=== PATIENT | female | born 1980 | race Caucasian/White ===

== ENCOUNTER 2023-12-18 12:49 | Emergency (ER) | payer MEDICAID ==
[~2023-12-18] VITALS: Ht 157.5 cm; Wt 97.6 kg
[2023-12-18 12:56] VITALS: O2SAT 100
[2023-12-18] MEDS ORDERED: IBUP-2028 MT (15:51)
[2023-12-18] MEDS ORDERED: CEPH500C2 MT (16:00)
[2023-12-18 16:03] VITALS: BP 154/58; PULSE 75; RESP 16; TEMP 98.4
== END 2023-12-18 16:13 | disposition home or self-care (01) ==
LOC: ER 12:49
DX: S09.90XA Unspecified injury of head, initial encounter (principal); I10 Essential (primary) hypertension; W18.39XA Other fall on same level, initial encounter; Y93.89 Activity, other specified; Y92.89 Other specified places as the place of occurrence of the external cause; Y99.8 Other external cause status
CPT/HCPCS: 71100; 81025; 99284

== ENCOUNTER 2025-01-19 17:57 | Emergency (ER) | payer MEDICAID, OTHER ==
[~2025-01-19] VITALS: Ht 154.9 cm; Wt 86.0 kg
[~2025-01-19 17:57] MED LIST: CEPH500C2 MT; IBUP-2028 MT
[2025-01-19 18:11] VITALS: TEMP 37.3; O2SAT 98
[2025-01-19 19:05] VITALS: PULSE 90; RESP 22
[2025-01-19 19:08] LABS: BASOPHILS % 0.9 % (0.0-2.0); EOSINOPHILS % 3.6 % (0.0-5.0); HEMATOCRIT. 36.2 % (36.0-48.0); HEMOGLOBIN. 11.9 g/dL (12.0-16.0); MEAN CORPUSCULAR HEMOGLOBIN 30.3 pg (28.0-32.0); MEAN CORPUSCULAR VOLUME 91.6 fL (81.0-99.0); MEAN PLATELET VOLUME 7.6 fl (7.4-10.4); MONOCYTES % 13.8 % (2.0-8.0); NEUTROPHILS % 49.7 % (40.0-76.0); PLATELET 353 x1000/uL (130-400); RED BLOOD CELL COUNT 3.95 mill/uL (4.2-5.4); RED CELL DISTRIBUTION WIDTH 15.4 % (11.6-14.6); WHITE BLOOD COUNT 5.9 x1000/uL (4.5-11.0)
[2025-01-19] MEDS: IPRATROPIUM BROMIDE (0.02%) 0.5MG/2.5ML NEB HHN STA (19:13)
[2025-01-19] MEDS: ALBUTEROL (0.083%) 2.5MG/3ML NEB HHN STA (19:13)
[2025-01-19 19:17] LABS: CHLORIDE 106 mEq/L (98-107); POTASSIUM 3.2 mEq/L (3.5-5.1); SODIUM 138 mEq/L (136-145)
[2025-01-19 19:18] LABS: CALCIUM 8.6 mg/dL (8.7-10.4); CARBON DIOXIDE 26 mEq/L (21-32)
[2025-01-19 19:23] LABS: CREATININE 0.7 mg/dL (0.6-1.0); GLUCOSE 105 mg/dL (70-105); HCG SCREEN NEGATIVE; UREA NITROGEN BLOOD 10 mg/dL (9-23)
[2025-01-19] MEDS ORDERED: BENZ200C52 MT (19:53)
[2025-01-19] MEDS ORDERED: IBUP-2029 MT (19:53)
[2025-01-19 20:06] LABS: CLARITY URINE CLOUDY (CLEAR); COLOR URINE YELLOW (YELLOW); GLUCOSE URINE NEGATIVE (NEGATIVE); KETONES URINE NEGATIVE (NEGATIVE); LEUKOCYTE ESTERASE URINE 2+ (NEGATIVE); NITRITE URINE NEGATIVE (NEGATIVE); OCCULT BLOOD URINE NEGATIVE (NEGATIVE); PH URINE 5.5 (4.5-8.0); PROTEIN URINE TRACE (NEGATIVE); SPECIFIC GRAVITY URINE 1.023 (1.005-1.030); UROBILINOGEN URINE 0.2 E.U./dL (0.2-1.0)
[2025-01-19 20:33] LABS: WBC URINE 0-2 /hpf (0-2)
[2025-01-19 20:34] LABS: BACTERIA URINE 1+; MUCUS URINE TRACE /lpf (< = 2+); RBC URINE NONE SEEN /hpf (0-2); SQUAMOUS EPITHELIAL CELL URINE 3+ /lpf (RARE/1+)
[2025-01-19] MEDS: KETOROLAC 30MG/ML VIAL IM ONE (20:34)
[2025-01-19 20:35] VITALS: BP 136/72; PULSE 80; RESP 18; O2SAT 100
[2025-01-19] MEDS: PREDNISONE 20MG TABLET PO STA (20:35)
== END 2025-01-19 20:36 | disposition home or self-care (01) ==
LOC: ER 17:57
DX: J06.9 Acute upper respiratory infection, unspecified (principal); R09.81 Nasal congestion; E83.51 Hypocalcemia; E87.6 Hypokalemia; I10 Essential (primary) hypertension; Z98.51 Tubal ligation status
CPT/HCPCS: 80048; 81003; 84703; 85025; 36415; 71045; 94640; 96372; 99284; J7512; J1885; Z7610 ×3

== ENCOUNTER 2025-01-25 13:09 | Emergency (ER) | payer OTHER ==
[~2025-01-25] VITALS: Ht 154.9 cm; Wt 81.0 kg
[~2025-01-25 13:09] MED LIST changes: +BENZ200C52 MT; +IBUP-2029 MT
[2025-01-25 13:43] VITALS: O2SAT 97
[2025-01-25] MEDS ORDERED: AZIT250T MT (16:39)
[2025-01-25 16:53] LABS: INFLUENZA TYPE A Presumptive Negative (Pres. Neg.); INFLUENZA TYPE B Presumptive Negative (Pres. Neg.); RESPIRATORY SYNCYTIAL VIRUS Not Detected (Not Detectd)
[2025-01-25 17:09] VITALS: BP 174/109; PULSE 67; RESP 18; TEMP 36.7; O2SAT 100
== END 2025-01-25 17:10 | disposition home or self-care (01) ==
LOC: ER 13:09
DX: J06.9 Acute upper respiratory infection, unspecified (principal); R05.9 Cough, unspecified; R09.81 Nasal congestion; I10 Essential (primary) hypertension; Z79.899 Other long term (current) drug therapy; Z98.51 Tubal ligation status
CPT/HCPCS: 71045; 73562; 87420; 87804; 99284

== ENCOUNTER 2025-07-18 02:07 | Emergency (ER) | payer OTHER ==
[~2025-07-18] VITALS: Ht 160 cm; Wt 109.5 kg
[~2025-07-18 02:07] MED LIST changes: +AZIT250T MT; +IBUP-1455 MT; -IBUP-2029 MT
[2025-07-18 02:27] VITALS: TEMP 36.7; O2SAT 98
[2025-07-18] MEDS: KETOROLAC 30MG/ML VIAL IM ONE (04:40)
[2025-07-18] MEDS ORDERED: AMOX1TAB16 MT (06:06)
[2025-07-18] MEDS ORDERED: IBUP-2030 MT (06:06)
[2025-07-18 06:20] VITALS: BP 159/90; PULSE 69; RESP 18; O2SAT 99
== END 2025-07-18 06:22 | disposition home or self-care (01) ==
LOC: ER 02:07
DX: K04.7 Periapical abscess without sinus (principal); L03.211 Cellulitis of face; R51.9 Headache, unspecified
CPT/HCPCS: 99285; 70486; 81025; 96372; J1885